=== PATIENT | male | born 1990 | race American Indian/Alaskan Native ===

== ENCOUNTER 2018-05-09 22:25 | Emergency (ER) | payer SELFPAY ==
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
[2018-05-10] MEDS ORDERED: BOOSTRIX IM ONE (06:56)
[2018-05-10] MEDS ORDERED: TRIPLE ANTIBIOTIC TP STA (06:56)
[2018-05-10] MEDS ORDERED: MOTRIN PO ONE (06:56)
[2018-05-10] MEDS ORDERED: PERCOCET 5/325 PO ONE (06:56)
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
[2018-05-10 09:02] VITALS: BP 124/76
== END 2018-05-10 09:00 | disposition home or self-care (01) ==
LOC: ED 22:25
DX: S50.312A Abrasion of left elbow, initial encounter (principal); E11.9 Type 2 diabetes mellitus without complications; F17.200 Nicotine dependence, unspecified, uncomplicated; V29.9XXA Motorcycle rider (driver) (passenger) injured in unspecified traffic accident, initial encounter; Y93.89 Activity, other specified; Y99.8 Other external cause status; Y92.410 Unspecified street and highway as the place of occurrence of the external cause
CPT/HCPCS: 90471; 90715; A6250